=== PATIENT | female | born 1975 | race Caucasian/White ===

== ENCOUNTER 2017-09-27 22:09 | Inpatient (IN) | payer OTHER ==
[~2017-09-27] VITALS: Ht 167.6 cm; Wt 129.3 kg
[~2017-09-27 22:09] MED LIST: DAILY MULTIPLE1 EACH PO
[2017-09-28 09:39] VITALS: BP 142/89
[2017-09-28] MEDS ORDERED: ATRIPLA TABLET1 EACH PO (11:01)
[2017-09-28 15:21] VITALS: BP 149/70
[2017-09-28 20:22] VITALS: BP 137/71
[2017-09-28 23:48] VITALS: BP 137/73
[2017-09-29 03:50] VITALS: BP 128/82
[2017-09-29 07:10] LABS: HEMATOCRIT 37.5 % (36.0-46.0); HEMOGLOBIN 12.3 G/DL (11.9-15.5); MCH 30.4 PG (29.0-34.0); MCHC 32.8 G/DL (30.0-36.0); MCV 92.8 FL (83-99); PLATELET COUNT 326 K/uL (156-360); RBC DIS.WIDTH-CV 12.9 % (11.8-14.6); RBC DIS.WIDTH-SD 43.8 % (39-53); RED BLOOD COUNT 4.04 M/uL (3.80-5.20); WHITE BLOOD COUNT 12.6 K/uL (4.1-10.2)
[2017-09-29 07:35] LABS: CHLORIDE 104 MEQ/L (99-109); CREATININE 0.7 MG/DL (0.6-1.3); GFR ESTIMATE (CALCULATED) > 59 mL/min/; GLUCOSE 118 mg/dL (70-99); MAGNESIUM 1.8 mg/dl (1.3-2.7); PHOSPHORUS 3.7 mg/dL (2.5-4.9); POTASSIUM 4.6 MEQ/L (3.7-5.4); SODIUM 138 MEQ/L (136-147); UREA NITROGEN (BUN) 5 mg/dL (9-23)
[2017-09-29 07:39] VITALS: BP 137/64
[2017-09-29] MEDS ORDERED: CARAFATE100 MG/ML PO (10:39)
[2017-09-29] MEDS ORDERED: PANTOPRAZOLE SO40 MG PO (10:39)
[2017-09-29] MEDS ORDERED: ZOFRAN4 MG PO (10:40)
[2017-09-29] MEDS ORDERED: NORCO 5/3251 TABLET PO (10:40)
[2017-09-29 11:51] VITALS: BP 145/84
== END 2017-09-29 14:09 | disposition home or self-care (01) | DRG 621 ==
LOC: ENRESERV 22:09 → 2SOUTH 09-28 09:08 → ENRESERV 09-28 13:40 → 2EAST 09-28 15:14 → 2SOUTH 09-28 15:19 → 2EAST 09-29 14:09
PROVIDERS: Surgery
PROC: 0DB64Z3 Excision of Stomach, Percutaneous Endoscopic Approach, Vertical (ICD-10-PCS; principal; 2017-09-28)
DX: E66.01 Morbid (severe) obesity due to excess calories (principal); Z68.42 Body mass index [BMI] 45.0-49.9, adult; Z87.891 Personal history of nicotine dependence; Z21 Asymptomatic human immunodeficiency virus [HIV] infection status; Z90.49 Acquired absence of other specified parts of digestive tract
CPT/HCPCS: 80048; 82948; 83735; 84100; 85027; C9113; J0131; J0690; J1100; J1170; J1644; J1650; J1885; J2250; J2300; J2405; J2550; J2710; J2765; J3010; J3480; J7120; J7643; Q0175; S0020